=== PATIENT | male | born 2000 | race Caucasian/White ===

== ENCOUNTER → 2024-09-06 13:42 | Outpatient (CLI) | payer OTHER, SELFPAY ==
--- NOTE | 2024-09-06 13:44 | DI.ECHO.S_ITS ---
[facility] : : [address] : : [facility] : : [place], : : [place] [address] : : Phone: [phone] Echocardiogram Report + + :Name: ARCHIE BURROWS Study Date: 09/06/2024 Height: 70 in : :[facility] ReadingLocation: Weight: 210 lb : : Gender: Male BSA: 2.1 m2 : :: 2000 Age: 24 yrs BP: 129/76 mmHg: :Reason For Study: VENTRICULAR TACHYCARDIA : :Ordering Physician: JACKIE, : :ALEXIS Performed By: Nick Underwood : :Referring: ALEXIS MEJIA : + + Interpretation Summary Normal both left and right right ventricle size and function. The ejection fraction is estimated to be 55-60%. No valvular abnormality. Procedure: A two-dimensional transthoracic echocardiogram with color flow and Doppler was performed. The study quality was technically good. There is no prior echocardiogram noted for this patient. The patient was in normal sinus rhythm during the exam. Left Ventricle: The left ventricle is normal in size and wall thickness. There is no ventricular septal defect visualized. The ejection fraction is estimated to be 55-60%. There are no focal wall motion abnormalities. Diastolic parameters suggest probable normal left ventricular diastolic function and normal filling pressures. Right Ventricle: The right ventricle is normal in size and function. Atria: The left atrial size is normal. Right atrial size is normal. There is no Doppler evidence for an atrial septal defect. Mitral Valve: The mitral valve is normal in structure and function. There is no mitral regurgitation noted. Aortic Valve: The aortic valve is trileaflet. The aortic valve opens well. No aortic regurgitation is present. Tricuspid Valve: The tricuspid valve is normal in structure and function. There is trace tricuspid regurgitation. The right ventricular systolic pressure is estimated to be at least 23 mmHg based on an estimated right atrial pressure of 3 mm Hg. Pulmonic Valve: The pulmonic valve is normal in structure and function. There is trace pulmonic regurgitation. Great Vessels: The aortic root is normal size. The dimensions of the ascending aorta are normal. The pulmonary artery is normal size. The IVC is of normal diameter and collapses greater than 50% with a sniff. This suggests a low right atrial pressure of 3 mm Hg. Pericardium/ Pleura There is no pericardial effusion. There is no pleural effusion. MMode/2D Measurements & Calculations LVIDd: 5.6 cm AoV Openin.1 cm LVIDs: 4.2 cm LVOT diam: 2.5 cm IVSd: 0.91 cm Ao root diam: 3.6 cm LVPWd: 1.1 cm asc Aorta Diam: 3.1 cm LV camacho. diameter/BSA (cm/m^2): 2.6 Ao Arch Diam (Prox Trans): 1.6 cm LV sys. diameter/BSA (cm/m^2): 2.0 FS: 25.0 % EPSS: 1.1 cm LA A2 area: 18.8 cm2 RA long axis: 5.0 cm LA A4 area: 19.5 cm2 RA area: 20.3 cm2 LA length (vol): 5.6 cm RA vol: 70.3 ml LA vol: 55.9 ml RA : 33.0 ml/m2 LA vol index: 26.3 ml/m2 RVD1 (basal): 3.8 cm IVC diam: 1.7 cm RVD2 (mid): 3.4 cm TAPSE: 2.0 cm Doppler Measurements & Calculations Ao V2 max: 105.5 cm/sec LVOT Max Juan: 74.5 cm/sec Ao V2 mean: 83.5 cm/sec LV V1 max P.2 mmHg Ao V2 VTI: 22.6 cm LV V1 VTI: 16.8 cm Ao max P.5 mmHg Ao mean P.9 mmHg [place](I,D): 3.8 cm2 MV E max juan: 47.5 cm/sec [place](V,D): 3.6 cm2 MV A max juan: 32.4 cm/sec [place] indexed to BSA (cm^2/m^2): 1.8 MV E/A: 1.5 sev ratio: 0.74 Med Peak E' Juan: 9.1 cm/sec E/E' med: 5.2 Lat Peak E' Juan: 12.0 cm/sec E/E' lat: 4.0 E/e' average: 4.6 MV dec time: 0.29 sec TR max juan: 223.1 cm/sec TR max P.1 mmHg PA V2 max: 85.3 cm/sec SV(LVOT): 85.3 ml PA V2 mean: 59.1 cm/sec PA mean P.6 mmHg PA pr(Accel): 22.5 mmHg Electronically signed by: Niko Mullen on Reading Physician:09/06/2024 03:20 PM
== END ==
LOC: ECHO 13:43
PROVIDERS: Referring Provider Chiropractor; Visit Provider Chiropractor
DX: I47.20 Ventricular tachycardia, unspecified (principal)
CPT/HCPCS: 93306

== ENCOUNTER → 2024-09-20 08:35 | Outpatient (CLI) | payer OTHER, SELFPAY ==
--- NOTE | 2024-09-20 08:40 | EKG_ITS ---
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
== END ==
PROVIDERS: Referring Provider Chiropractor; Visit Provider Chiropractor
DX: I47.20 Ventricular tachycardia, unspecified (principal)
CPT/HCPCS: 93005